=== PATIENT | female | born 1970 ===

== ENCOUNTER 2017-02-17 12:59 | Outpatient (CLI) | payer BC ==
--- NOTE | 2017-02-17 13:33 | XRay Report ---
LEFT FOOT: History: Left foot pain. The bony architecture is intact. Bony alignment is normal. No soft tissue abnormalities are seen. The joint spaces appear preserved. IMPRESSION: Normal left foot.
== END 2017-02-17 13:00 | disposition home or self-care (01) ==
LOC: SPVIMAG 12:59
PROVIDERS: ATTEND Orthopaedic Surgery Sports Medicine
DX: M79.672 Pain in left foot (principal)